=== PATIENT | male | born 2000 | race Caucasian/White ===

== ENCOUNTER 2024-03-01 08:54 | Outpatient (CLI) | payer OTHER, SELFPAY | END 2024-03-01 08:55 | disposition home or self-care (01) | PROVIDERS: PCP Physician Assistant Medical; Visit Provider Physician Assistant Medical | DX: E66.9 Obesity, unspecified (principal); R03.0 Elevated blood-pressure reading, without diagnosis of hypertension; L21.9 Seborrheic dermatitis, unspecified; Z83.3 Family history of diabetes mellitus; Z84.1 Family history of disorders of kidney and ureter; Z13.6 Encounter for screening for cardiovascular disorders | CPT/HCPCS: 80053; 80061; 84443 ==